=== PATIENT | female | born 1995 | race Caucasian/White ===

== ENCOUNTER 2016-07-09 01:29 | Emergency (ER) | payer BC, OTHER ==
[~2016-07-09] VITALS: Ht 157.5 cm; Wt 55.0 kg
[2016-07-09 01:34] VITALS: TEMP 36.4; Ht 157.5 cm; Wt 55.0 kg
[2016-07-09] MEDS ORDERED: LORAZEPAM 2 MG/ML 1 ML VIAL IV STA (01:47)
[2016-07-09 01:58] VITALS: O2SAT 100
[2016-07-09] MEDS ORDERED: SODIUM CHLORIDE 0.9% 1000ML 1,000 ML IV ONE (02:00)
[2016-07-09 02:01] LABS: HEMATOCRIT 39.6 % (37-47); MEAN CELL VOLUME 90.8 fL (80-100); MEAN CORPUSCULAR HEMOGLOBIN 31.9 pg (25-34); MEAN CORPUSCULAR HGB CONC 35.1 g/dl (32-36); MEAN PLATELET VOLUME 10.5 fL (7.4-10.4); PLATELET COUNT 225 K/uL (130-400); RED BLOOD COUNT 4.36 M/uL (4.2-5.4); WHITE BLOOD COUNT 7.32 K/uL (4.8-10.8)
[2016-07-09 02:19] LABS: CALCIUM 8.7 mg/dl (8.5-10.1); POTASSIUM 3.4 mmol/L (3.5-5.1)
[2016-07-09 02:23] LABS: URINE APPEARANCE CLEAR (CLEAR); URINE BILIRUBIN NEG (NEG); URINE COLOR YELLOW; URINE NITRITE NEG (NEG); URINE SPECIFIC GRAVITY 1.022 (1.000-1.030); UROBILINOGEN NEG (NEG); ZZUR CULT IF INDIC CLEAN CATCH NO
[2016-07-09 02:25] LABS: MANUAL MICROSCOPIC REQUIRED? NO; REVIEW REQ? NO
[2016-07-09 02:30] LABS: ALB/GLOB RATIO 1.1 (0.9-2); THYROID STIMULATING HORMONE 6.54 uIu/ml (0.300-4.500)
[2016-07-09] MEDS ORDERED: OPTIRAY 320 IV PRN (02:45)
[2016-07-09 03:21] LABS: COMPLETE YES; EOSINOPHIL % 0.9 %; LYMPH ABS # 3.07 K/uL (1.2-3.4); LYMPHOCYTE % 41.9 %; NEUTROPHILS % 38.4 %; VARIANT LYM ABS # 1.31 K/uL; VARIANT LYMPHOCYTE % 17.9 %
[2016-07-09] MEDS ORDERED: BCPILLS PO (03:32)
[2016-07-09 04:45] VITALS: BP 106/70; PULSE 82; O2SAT 98
--- NOTE | 2016-07-09 08:45 | DIAGNOSTIC IMAGING REPORT ---
CHEST ONE VIEW PORTABLE CLINICAL HISTORY: Left-sided chest pain. COMPARISON STUDY: No previous studies for comparison. FINDINGS: Lung volumes are normal. Lungs are clear. There is no pneumothorax or pleural effusion. Cardiac size is normal. Mediastinal contours are normal. There is no evidence of pulmonary edema. IMPRESSION: No acute cardiopulmonary findings. Electronically signed by: Benny Barbosa M.D. 07/09/2016 8:43 AM Dictated Date/Time: 07/09/2016 8:43 AM
--- NOTE | 2016-07-09 08:58 | DIAGNOSTIC IMAGING REPORT ---
CT ANGIOGRAPHY OF THE CHEST, PULMONARY EMBOLUS PROTOCOL CLINICAL HISTORY: Left-sided chest pain and shortness of breath. COMPARISON STUDY: Chest radiograph performed earlier today TECHNIQUE: Following IV administration of 88 mL of Optiray-320, helical axial images of the chest were obtained utilizing the pulmonary embolus protocol. Maximal intensity projections and sagittal and coronal reformats were viewed on an independent 3D workstation. IV contrast was administered without complication. CT DOSE: 209.92 mGy.cm FINDINGS: No pulmonary emboli are identified. There is no evidence of thoracic aortic dissection. The size of the heart is normal. There is no thoracic lymphadenopathy. Central airways are patent. Groundglass opacities represent atelectasis. There is no consolidation to suggest pneumonia. The bony thorax and upper abdomen are unremarkable with exception of slight rightward curvature of the thoracic spine. IMPRESSION: 1. No pulmonary emboli identified. 2. No acute intrathoracic findings. Electronically signed by: Benny Barbosa M.D. 07/09/2016 8:57 AM Dictated Date/Time: 07/09/2016 8:52 AM
--- NOTE | 2016-07-10 00:49 | EMERGENCY ROOM VISIT NOTE ---
History First contact with patient: 01:36 Chief Complaint: CHEST PAIN Stated Complaint: CHEST PAIN History of Present Illness The patient is a 21 year old female who presents to the Emergency Room with complaints of left sided chest pain that has been slowly worsening over the past 12 hours. The patient states that she first noticed her discomfort while bowling with her boyfriend earlier today. She states the pain was initially underneath her left breast, but has slowly ascended into her left chest wall. She feels like her heart rate is elevated. The patient has not had lightheadedness or dizziness. She does not have injury or trauma to explain her symptoms. She has not had fever or chills. No rash. The patient does have recent travel history to [place] for spring. She does not report extremity pain or swelling. She considers herself otherwise usually healthy. She is on oral contraceptive pills. She rates her current discomfort a 7/10. She does not relate ameliorating or aggravating symptoms. Review of Systems More than 10 systems were reviewed and otherwise negative with the exception of history of present illness. Past Medical/Surgical History No chronic medical disease Family History No pertinent family history Social History Smoking Status: Never Smoker Occupation Status: [employer] Current/Historical Medications Scheduled Control Pills ( Control Pills), 1 TAB PO DAILY Allergies Coded Allergies: No Known Allergies (Unverified , 07/09/16) Physical Exam Vital Signs Date Time Temp Pulse Resp B/P Pulse Ox O2 Delivery O2 Flow Rate FiO2 07/09/16 04:45 82 20 106/70 98 07/09/16 03:56 92 18 117/77 Room Air 07/09/16 02:02 99 Room Air 07/09/16 01:58 100 Room Air 07/09/16 01:34 36.4 118 18 141/85 100 Room Air Pain Rating (0-10): 0 Physical Exam VITALS: Vitals are noted on the nurse's note and reviewed by myself. Vital signs stable. GENERAL: Anxious appearing white female, who is in no acute distress and resting comfortably. Patient is cooperative with the examination. HEAD: Normocephalic atraumatic. EARS: External ear normal. External auditory canals clear, tympanic membranes pearly pradhan without erythema or effusion bilaterally. EYES: Pupils equal round and reactive to light and accommodation. Conjunctivae without injection, sclerae without icterus. Extraocular movements intact. NOSE: Patent, turbinates without inflammation or discharge. MOUTH: Mucous membranes moist. Tonsils are not enlarged. Pharynx without erythema, blood, or exudate. Uvula midline. Airway patent. NECK: Supple without nuchal rigidity. No lymphadenopathy. No thyromegaly. Cervical spine is nontender. HEART: Regular rate and rhythm without murmurs gallops or rubs. LUNGS: Clear to auscultation bilaterally without wheezes, rales or rhonchi. No retractions or accessory muscle use. CHEST WALL: Examination was performed in the presence of female nurse band saw operator cake cutting. There is no left-sided chest wall rash or lesion. No evidence of cellulitis or vesicular. Breast is nontender and not erythematous. No mastitis. No drainage from the nipple. No appreciable lymphadenopathy into the axilla ABDOMEN: Positive normal bowel sounds x 4. Soft, nontender, without masses or organomegaly. No guarding or rebound tenderness. MUSCULOSKELETAL: No muscle atrophy, erythema, or edema noted. Full range of motion without joint tenderness in all extremities. Negative Homans sign bilateral. Medical Decision & Procedures ER Provider Diagnostic Interpretation: CHEST ONE VIEW PORTABLE CLINICAL HISTORY: Left-sided chest pain. COMPARISON STUDY: No previous studies for comparison. FINDINGS: Lung volumes are normal. Lungs are clear. There is no pneumothorax or pleural effusion. Cardiac size is normal. Mediastinal contours are normal. There is no evidence of pulmonary edema. IMPRESSION: No acute cardiopulmonary findings. CT ANGIOGRAPHY OF THE CHEST, PULMONARY EMBOLUS PROTOCOL CLINICAL HISTORY: Left-sided chest pain and shortness of breath. COMPARISON STUDY: Chest radiograph performed earlier today TECHNIQUE: Following IV administration of 88 mL of Optiray-320, helical axial images of the chest were obtained utilizing the pulmonary embolus protocol. Maximal intensity projections and sagittal and coronal reformats were viewed on an independent 3D workstation. IV contrast was administered without complication. CT DOSE: 209.92 mGy.cm FINDINGS: No pulmonary emboli are identified. There is no evidence of thoracic aortic dissection. The size of the heart is normal. There is no thoracic lymphadenopathy. Central airways are patent. Groundglass opacities represent atelectasis. There is no consolidation to suggest pneumonia. The bony thorax and upper abdomen are unremarkable with exception of slight rightward curvature of the thoracic spine. IMPRESSION: 1. No pulmonary emboli identified. 2. No acute intrathoracic findings. Laboratory Results 07/09/16 01:45 Red Blood Count 4.36, Mean Corpuscular Volume 90.8, Mean Corpuscular Hemoglobin 31.9, Mean Corpuscular Hemoglobin Concent 35.1, Mean Platelet Volume 10.5 07/09/16 01:45 Test 07/09/16 01:45 07/09/16 01:52 07/09/16 01:58 White Blood Count 7.32 K/uL (4.8-10.8) Red Blood Count 4.36 M/uL (4.2-5.4) Hemoglobin 13.9 g/dL (12.0-16.0) Hematocrit 39.6 % (37-47) Mean Corpuscular Volume 90.8 fL (80-100) Mean Corpuscular Hemoglobin 31.9 pg (25-34) Mean Corpuscular Hemoglobin Concent 35.1 g/dl (32-36) Platelet Count 225 K/uL (130-400) Mean Platelet Volume 10.5 fL (7.4-10.4) RDW Standard Deviation 40.0 fL (36.4-46.3) RDW Coefficient of Variation 12.1 % (11.5-14.5) Neutrophils % (Manual) 38.4 % Lymphocytes % (Manual) 41.9 % Variant Lymphocytes % (manual) 17.9 % Monocytes % (Manual) 0.9 % Eosinophils % (Manual) 0.9 % Neutrophils # (Manual) 2.81 K/uL (1.4-6.5) Total Absolute Neutrophils 2.81 K/uL (1.4-6.5) Lymphocytes # (Manual) 3.07 K/uL (1.2-3.4) Absolute Variant Lymphocytes 1.31 K/uL Total Absolute Lymphocytes 4.38 K/uL (1.2-3.4) Monocytes # (Manual) 0.07 K/uL (0.11-0.59) Eosinophils # (Manual) 0.07 K/uL (0-0.5) Red Blood Cell Morphology Unremarkable Anion Gap 9.0 mmol/L (3-11) Est Creatinine Clear Calc Drug Dose 69.8 ml/min Estimated GFR () 92.6 Estimated GFR (Non- 79.9 BUN/Creatinine Ratio 19.0 (10-20) Calcium Level 8.7 mg/dl (8.5-10.1) Total Bilirubin 0.2 mg/dl (0.2-1) Aspartate Amino Transf (AST/SGOT) 16 U/L (15-37) Alanine Aminotransferase (ALT/SGPT) 22 U/L (12-78) Alkaline Phosphatase 55 U/L (45-117) Total Protein 7.9 gm/dl (6.4-8.2) Albumin 4.1 gm/dl (3.4-5.0) Globulin 3.8 gm/dl (2.5-4.0) Albumin/Globulin Ratio 1.1 (0.9-2) Lipase 229 U/L (73-393) Thyroid Stimulating Hormone (TSH) 6.540 uIu/ml (0.300-4.500) Bedside D-Dimer 123 ng/mlFEU (0-450) Bedside Troponin I 0.000 ng/ml (0-0.045) Urine Color YELLOW Urine Appearance CLEAR (CLEAR) Urine pH 5.0 (4.5-7.5) Urine Specific [place] 1.022 (1.000-1.030) Urine Protein NEG (NEG) Urine Glucose (UA) NEG (NEG) Urine Ketones NEG (NEG) Urine Occult Blood 3+ (NEG) Urine Nitrite NEG (NEG) Urine Bilirubin NEG (NEG) Urine Urobilinogen NEG (NEG) Urine Leukocyte Esterase NEG (NEG) Urine WBC (Auto) 1-5 /hpf (0-5) Urine RBC (Auto) 5-10 /hpf (0-4) Urine Hyaline Casts (Auto) 1-5 /lpf (0-5) Urine Epithelial Cells (Auto) 10-20 /lpf (0-5) Urine Bacteria (Auto) NEG (NEG) Urine Test NEG (NEG) Medications Administered Medications (Trade) Dose Ordered Sig/Angelo Route Start Time Stop Time Status Last Admin Dose Admin Sodium Chloride (Nss 1000ml) 1,000 ml @ 999 mls/hr Q1H1M ONCE IV 07/09/16 02:00 07/09/16 03:00 DC 07/09/16 01:57 999 MLS/HR Lorazepam (Ativan Inj) 0.5 mg NOW STAT IV 07/09/16 01:47 07/09/16 01:48 DC 07/09/16 01:57 0.5 MG ECG Change: Sinus tachycardia @110 RSR' or QR pattern in V1 suggests right ventricular conduction delay Borderline ECG No previous ECGs available Confirmed by MARIA ESTHER WAY MD ([id number]) on 07/09/2016 12:53:38 PM ED Course Physical exam and history were performed. Nursing notes and EMR were reviewed. Patient appears to have left sided chest pain that has been slowly worsening over the past several hours. She does not appear toxic on examination. EKG was performed and was sinus tachycardia without acute ST elevation. IV access was established and labs were obtained. Chest x-ray was performed. The patient was hydrated with normal saline and given 0.5 mg IV Ativan. The patient is as above and was reviewed. She does not have a significantly elevated white blood cell count, anemia, bandemia, or significant electrolyte imbalance. Lipase and transaminases are nondiagnostic. Troponin 1 is negative. Chest x-ray does not show acute findings. On reevaluation the patient continued to have discomfort, and I'll explore CT scan of her chest because of her oral contraceptive use, tachycardia, and recent travel history. CT scan is as above and does not show acute findings. The patient's urine does not show evidence of infection. Overall the patient appears stable for discharge home. She was monitored for several hours here in the department and did not have any worsening of her symptoms. I discussed options of care with patient, and she was concerned that some of her symptoms may be related to anxiety or panic. I feel this is certainly possible, as she does have some increased stressors in life with school. The patient should follow with [facility] this week for further care and management. She was otherwise invited back to the ER with any new, worsening, or concerning symptoms. The patient was discharged home under the care of her boyfriend who is acting as the local truck driver The chart was completed utilizing [employer] Speech Voice Recognition Software. Grammatical errors, random word insertions, pronoun errors, and incomplete sentences are an occasional consequence of this system due to software limitations, ambient noise, and hardware issues. Any formal questions or concerns about the content, text, or information contained within the body of this dictation should be directly addressed to the provider for clarification. . Medical Decision Differential diagnosis includes, but is not limited to: Myocardial infarction, dysrhythmia, pericarditis, pneumothorax, aortic aneurysm/dissection, DVT/PE, anxiety, GERD, PUD, electrolyte imbalance, thyroid disorder, pneumonia, bronchitis, pancreatitis, and others Impression Primary Impression: Non-cardiac chest pain Departure Information Dispostion Home / Self-Care Condition GOOD Forms HOME CARE DOCUMENTATION FORM, IMPORTANT VISIT INFORMATION Patient Instructions My [facility] Additional Instructions You were seen and evaluated today on an emergency basis only. This is not a substitute for, or an effort to provide, complete comprehensive medical care. It is not possible to recognize and treat all injuries or illnesses in a single emergency department visit. For this reason it is recommended that you followup with [facility] the next 2-3 days for recheck of your condition. For baseline pain relief you may alternate ibuprofen and acetaminophen every 4 hours for pain control. Take 600 mg ibuprofen (Advil) and then 4 hours later take 1000 mg acetaminophen (Tylenol). Do not take more than 3000 mg acetaminophen in a single day. Drink plenty of fluids and remain well hydrated. You are welcome to return to the emergency department anytime with new, worsening, or concerning symptoms.
== END 2016-07-09 04:45 | disposition home or self-care (01) ==
LOC: C.EDB 01:30
DX: R07.9 Chest pain, unspecified (principal)